=== PATIENT | female | born 1985 | race Two or more races ===

== ENCOUNTER 2020-04-20 12:15 | Inpatient (IN) | payer OTHER ==
[~2020-04-20] VITALS: Ht 172.7 cm; Wt 3.6 kg
[2020-04-20] MEDS ORDERED: PRENATAL PO (13:45)
[2020-04-27] MEDS ORDERED: ATABEX OB TABL1 EACH (08:00)
[2020-04-27] MEDS ORDERED: INTEGRA F CAPS1 EACH (08:00)
[2020-04-30] MEDS ORDERED: IBUPROFEN800 MG PO (06:32)
[2020-04-30] MEDS ORDERED: SIMETHICONE125 M1 PO (06:33)
== END 2020-04-30 15:23 | disposition home or self-care (01) | DRG 788 ==
LOC: EDSTATUS 12:15 → ADM 12:15 → O/R 04-27 06:23 → OB/GYN 04-27 06:23 → LDR 04-27 07:00 → OB/GYN 04-27 11:11 → LDR 04-27 12:15 → OB/GYN 04-30 15:23
PROVIDERS: ADMIT Obstetrics & Gynecology; ATTEND Obstetrics & Gynecology
PROC: 4A1HXFZ Monitoring of Products of Conception, Cardiac Rhythm, External Approach (ICD-10-PCS; 2020-04-27)
PROC: 3E033VJ Introduction of Other Hormone into Peripheral Vein, Percutaneous Approach (ICD-10-PCS; 2020-04-27)
PROC: 10D00Z1 Extraction of Products of Conception, Low, Open Approach (ICD-10-PCS; principal; 2020-04-27 07:00)
DX: O65.5 Obstructed labor due to abnormality of maternal pelvic organs (principal); O34.13 Maternal care for benign tumor of corpus uteri, third trimester; D25.9 Leiomyoma of uterus, unspecified; Z3A.39 39 weeks gestation of pregnancy; Z37.0 Single live birth